=== PATIENT | male | born 1965 | race African-American/Black ===

== ENCOUNTER 2023-02-16 19:40 | Emergency (ER) | payer SELFPAY ==
[2023-02-16 19:41] VITALS: BP 145/87; PULSE 100; RESP 18; TEMP 36.8; O2SAT 100; BMI 28.4
--- NOTE | 2023-02-16 20:05 | EX.ED.DYSGE1 ---
HPI History of Present Illness Chief Complaint: General Illness Informant: patient Narrative Narrative: Patient presents with multiple complaints. He states he has had trouble urinating for quite some time and really never told anybody about it. He states he has to strain quite a bit just to get a small amount of urine out. He does not necessarily feel like his bladder is still full after he urinates. For the past week he has had subjective fevers, body aches, eyes are sore, slight shortness of breath. He states he feels that he has the flu. Patient admits he has not seen a doctor in quite some time. He states the last time he saw eye doctor he was told he had high blood pressure but he tells me he does not believe in blood pressure medication and is not currently on anything. PFSH PFSH Medical History no medical history no medical history Home Medications ciprofloxacin HCl 500 mg tablet (Cipro) 500 mg PO BID #7 tabs 02/16/23 [Rx Last Taken Unknown] Allergy/AdvReac Type Severity Reaction Status Date / Time No Known Allergies Allergy Verified 02/16/23 19:43 Social History Smoking Status: Current every day smoker tobacco type: cigarettes ROS ROS ED Constitutional Constitutional ED: Reports fever(s) and subjective; Denies chills Eyes Eyes: Denies change in vision or discharge from eye(s) ENT ENT ED: Denies discharge from eye(s), rhinorrhea or sore throat Cardiovascular Cardiovascular: Denies chest pain or palpitations Respiratory/Chest Respiratory/Chest: Reports dyspnea Gastrointestinal Gastrointestinal: Reports diarrhea; Denies abdominal pain, nausea or vomiting Genitourinary Genitourinary ED: Reports difficulty urinating; Denies dysuria Musculoskeletal Musculoskeletal: Reports myalgias; Denies back pain or extremity pain Integumentary Denies Abrasions or rash Neurologic Neurologic: Denies headache(s) or weakness Psychiatric Psychiatric: Denies anxiety or depression Allergic/Immunologic Allergic/Immunologic ED: Denies lip swelling or urticaria EXAM Physical Exam Const Vital Signs: 02/16/23 19:41 02/16/23 20:30 Temperature 98.3 F Temperature Source Temporal Pulse Rate 100 Respiratory Rate 18 Respiratory Effort Normal Non-Labored Respiratory Pattern Normal Blood Pressure 145/87 H Blood Pressure Mean 106 Pulse Ox 100 Oxygen Delivery Method Room Air Positive well nourished and well developed General Appearance ED: well developed HEENT Reports moist mucous membranes Eyes EOMs intact bilaterally Chest Wall inspection of chest normal and palpation of chest normal Resp normal respiratory effort and clear to auscultation bilaterally Cardio regular rate and regular rhythm GI non-tender GI Narrative: I do not palpate a distended bladder on abdominal exam. Palpation: soft Extremity normal to inspection Neuro oriented x3 and no sensory deficits noted Motor Exam: strength 5/5 throughout Psych mental status grossly normal Skin no rashes or lesions noted MDM MDM MDM Narrative Medical decision making narrative: IV line established. Patient given IV fluids. Labwork obtained to evaluate for leukocytosis, anemia, and electrolyte derangement. Urinalysis obtained to evaluate for infection/hematuria. Swab for COVID and influenza obtained. History & Record Review Discussion w/independent historian: Patient Lab Data Attestation: I reviewed the patient's lab results. Labs: Laboratory Results - last 24 hr 02/16/23 02/16/23 20:20 20:25 WBC 8.0 RBC 4.60 Hgb 13.5 Hct 40.5 MCV 88.0 MCH 29.3 MCHC 33.3 RDW Std Deviation 42.2 RDW Coeff of [place] 13.0 Plt Count 266 MPV 10.5 Immature Gran % (Auto) 0.900 Neut % (Auto) 57.1 Lymph % (Auto) 25.3 [place] % (Auto) 16.2 H Eos % (Auto) 0.0 Baso % (Auto) 0.5 Absolute Neuts (auto) 4.6 Absolute Lymphs (auto) 2.02 Nucleated RBC % 0 Sodium 137 Potassium 3.8 Chloride 106 Carbon Dioxide 29.0 Anion Gap 2 L BUN 17 Creatinine 1.34 H Estim Creat Clear Calc 69.56 Est GFR (MDRD) Af Amer 71 Est GFR (MDRD) Non-Af 59 L BUN/Creatinine Ratio 12.7 Glucose 98 Calcium 8.6 Urine Color Yellow Urine Clarity Clear Urine pH 5.0 Ur Specific [place] 1.025 Urine Protein 30 H Urine Glucose (UA) Normal Urine Ketones 15 H Urine Occult Blood 10 H Urine Nitrite Positive H Urine Bilirubin 3 H Urine Urobilinogen 4 H Ur Leukocyte Esterase 100 H Urine RBC 0-5 SEEN Urine WBC 0-5 SEEN Ur Squamous Epith Cells 0-5 SEEN Urine Bacteria 1+ Urine Mucus 0 SEEN Radiography Chest X-Ray - ED: 1 View, Read by ED Physician, Normal, Heart, Lungs and Mediastinum Diagnostic Testing: Clinical Impression(s) from Imaging Studies Chest X-Ray 02/16/23 20:20 IMPRESSION: Normal x-ray examination of the chest. Electronically Signed: Dian Babb MD at 20:58 EST , Treatment and Re-Evaluation :: CBC was normal white count 8.0 with normal differential. Hemoglobin is normal at 13.5. Chemistry studies reveal normal potassium. Creatinine is 1.34 and I have no prior values available for comparison. Urinalysis reveals positive nitrites with 1+ bacteria. 100 leukocyte esterase is noted. Chest x-ray per my interpretation reveals no evidence of focal infiltrate. Radiology interpretation reviewed and agrees. COVID and influenza swab is negative. Test results discussed with the patient. I will treat him with Cipro for UTI and urine culture will be sent. We will refer him to local PCP to establish primary care. Return instructions given. Discharge Plan Triage Chief Complaint: General Illness ED Provider: Mckenzie Carlisle Dx/Rx/DC Orders Clinical Impression: UTI (urinary tract infection) Instructions: ED Bladder Infection, Male (Adult) Prescriptions: New ciprofloxacin HCl [Cipro] 500 mg tablet 500 mg PO BID Qty: 7 0RF Primary Care Provider: Care Physician,No Primary Referrals: Manuel Archibald MD [Med Staff - Anhydrous Ammonia Production Supervisor] - 1-2 Weeks NOT,DEFINED [Non-Staff] - Disposition Disposition: Home, Self Care
--- NOTE | 2023-02-16 20:20 | RAD_ITS ---
STUDY: X-RAY CHEST REASON FOR EXAM: Male, 57 years old. sob TECHNIQUE: Single AP portable view of the chest. COMPARISON: None. FINDINGS: The lungs are clear and expanded. There is no demonstrated pleural abnormality. Normal size heart. Normal mediastinum and shanda. Normal visualized pulmonary arteries. Normal visualized aortic arch and descending thoracic aorta. Normal visualized thoracic spine. Normal visualized ribs, clavicles, and shoulders. There is no demonstrated abnormality of the visualized soft tissue structures of the upper abdomen. RAD/Chest 1 View (Portable) IMPRESSION: Normal x-ray examination of the chest. Electronically Signed: Dian Babb MD at 20:58 EST ,
[2023-02-16] MEDS: 0.9% Normal Saline (1000mL) 1,000 ML 150 ML IV (20:23)
[2023-02-16 20:35] LABS: Mucous, Urine 0 SEEN /hpf (<or=2+)
[2023-02-16 20:36] LABS: Color, Urine Yellow (Yellow); Glucose, Dipstick Normal (Normal); Ketone-Dipstick 15 mg/dl (Negative); Leukocyte Esterase-Dipstick 100 /ul (Negative); Nitrite-Dipstick Positive (Negative); Occult Blood-Urine 10 /ul (Negative); Protein-Dipstick 30 mg/dl (Negative); Specific Gravity, Urine 1.025 (1.002-1.030); Urine Clarity Clear (Clear); Urine Urobilinogen 4 mg/dl (Normal)
[2023-02-16 20:36] LABS: Absolute Lymphocyte Count 2.02 X10^3/uL (0.83-4.51); Absolute Neutrophil Count 4.6 X10^3/uL (2.0-7.7); Basophil# 0.04 X10^3/uL; Basophil% 0.5 % (0-1); Hematocrit 40.5 % (40-54); Hemoglobin 13.5 g/dL (13.0-16.5); Lymphocyte # 2.02 X10^3/ul (0.83-4.51); Lymphocyte % 25.3 % (19-41); Mean Corp Hgb Conc 33.3 g/dL (32-36); Mean Corpuscular Hgb 29.3 pg (27.0-32.0); Mean Platelet Vol. 10.5 fl (6.2-12.0); Monocyte# 1.29 X10^3/uL; Monocyte% 16.2 % (0-10); NRBC Flagged by Analyzer 0 % (0-5); Neutrophil # 4.55 X10^3/uL (2.7-7.7); Neutrophil % 57.1 % (47-70); Platelet Count 266 K/mm3 (150-450); RBC Distribution Width SD 42.2 fl (35.1-43.9)
[2023-02-16 20:39] LABS: Urine Bilirubin Dipstick 3 mg/dL (Negative)
[2023-02-16 20:44] LABS: Bacteria 1+ /hpf (None Seen); Red Blood Cells-Urine 0-5 SEEN /hpf (0-5); Squamous Epithelial Cells - UA 0-5 SEEN /hpf (0-5); White Blood Cells 0-5 SEEN /hpf (0-5)
[2023-02-16 20:56] LABS: Anion Gap 2 (5-15); BUN 17 mg/dL (7-18); BUN/Creat Ratio 12.7 RATIO (10-20); Calcium,Total 8.6 mg/dL (8.5-10.1); Chloride 106 mmol/L (98-107); Creatinine, Serum 1.34 mg/dL (0.70-1.30); EST Glomerular Filtration Rate 59 mL/min (>60); Est Glom Filt Rate - Afr Amer 71 mL/min (>60); Estimated Creatinine Clearance 69.56 ml/min; Glucose 98 mg/dL (74-106); Potassium 3.8 mmol/L (3.5-5.1); Sodium Level 137 mmol/L (136-145)
[2023-02-16] MEDS: Ciprofloxacin 500 MG Tablet PO (22:04)
== END 2023-02-16 22:08 | disposition home or self-care (01) ==
PROVIDERS: Emergency Provider Emergency Medicine; Visit Provider Emergency Medicine
DX: N39.0 Urinary tract infection, site not specified (principal); F17.210 Nicotine dependence, cigarettes, uncomplicated
CPT/HCPCS: 71045; 80048; 81001; 85025; 87086; 87428; 96360; 96361; 99283; J7030; A4216